=== PATIENT | female | born 1960 | race Caucasian/White ===

== ENCOUNTER 2018-07-26 05:06 | Day surgery (SDC) | payer MEDICAID ==
[~2018-07-26] VITALS: Ht 165.1 cm; Wt 76.8 kg
--- NOTE | ~2018-07-26 | OP ---
PATIENT NAME: KIMBERLEE MENDEZ MEDICAL RECORD: [id number] :64 LOCATION:[facility] ADMISSION DATE: SURGEON: VALERIE DIAZ MD DATE OF OPERATION: 07/26/2018 PROCEDURE: EGD with placement of a Hemoclip to control bleeding. EGD with biopsy. WET ROOM WORKER: Valerie Diaz MD SCOPE: Olympus video gastroscope. MEDICATIONS: Per TIVA anesthesia. The patient received 230 mg of propofol for this procedure, O2 at 4 liters. INDICATION FOR THE PROCEDURE: Epigastric abdominal pain; nausea; vomiting; gastroesophageal reflux disease; and previous history of serrated hyperplastic polyp in the C-loop; which was biopsied in the past. FINDINGS: Informed consent was given. The patient was made comfortable with the above medications. After reaching an adequate level of sedation by slow IV push, the patient was placed on her left side. The endoscope was then advanced under direct visualization through the posterior pharyngeal area and advanced to the distal esophagus. Ulcerations were seen at the 4 o'clock position and multiple biopsies were obtained. We also took some biopsies of the gastroesophageal surround. The scope was then advanced into the stomach and retroflexed. Wnjz-ia-tbujyzgm inflammation was seen in cardia and fundus as well as body of the stomach. We then advanced the scope to the antral area, where some slight hemorrhage was appreciated. Biopsies were obtained looking for the presence of Helicobacter pylori. The scope was introduced into the duodenum, into the C-loop, and the area of the previous polyp was identified. It was noted that this area was slightly hemorrhagic due to significant inflammation in the area. Biopsies were taken, which increased the amount of bleeding which had already been noted. We had to take biopsies of this area due to the fact that a serrated hyperplastic polyp was identified in 2016. After biopsies were obtained, we placed a Hemoclip with an excellent result to control the bleeding. It is my opinion that this might have been needed prior to biopsies being obtained. The scope was then withdrawn. IMPRESSION: 1. Esophageal ulcer at the gastroesophageal junction at the 4 o'clock position, biopsied. Some heme was present after biopsies were obtained, but the bleeding did decrease to an acceptable level. I feel it will clot effectively. 2. Gastritis throughout the entire stomach, but most pronounced at the antral area, which was noted to be slightly hemorrhagic. Biopsy taken at the antrum. 3. Hemorrhagic duodenal polyp at 55 cm within the C-loop, biopsied, and then Hemoclip placed with an excellent result. PLAN: 1. The patient will be asked to take sucralfate at 1 gram p.o. q.i.d., ranitidine 300 mg p.o. at bedtime, and omeprazole 20 mg p.o. q.a.m. EGD in 2 months if not sooner depending on the path of this polyp in the duodenum. 2. The patient will have a clinic appointment in clinic in 3 weeks as she is OPERATIVE REPORT [id number] KIMBERLEE MENDEZ MAY very symptomatic with her abdominal pain, nausea, and vomiting, which are improving somewhat but still present. 3. The patient should follow reflux precautions stringently, both dietary and positional. No chocolate, tomato, citrus, caffeine, fatty foods, or peppermint. She is strongly encouraged to continue to attempt to stop smoking as this is exacerbating all of the problems which we encountered today including gastroesophageal reflux disease. She will be instructed not to eat late at night and sit up for hours, at least 2 hours, after eating and to sleep with the head of the bed elevated. TRANSINT:[id number] Voice Confirmation ID: [id number] DOCUMENT ID: [id number] cc: Faby Juarez APRN [phone] Dr. Nina Nava [phone] VALERIE DIAZ MD CC: FABY JUAREZ APRN and DR. NINA NAVA [phone] DICTATION DATE: 07/26/18817 DIGITAL TECHNICIAN: 07/26/18 [id number] [facility] 07/26/[address] [id number]
[2018-07-26] MEDS ORDERED: RESTORIL15 MG PO (06:04)
[2018-07-26] MEDS ORDERED: ZANTAC300 MG PO (06:05)
[2018-07-26] MEDS ORDERED: ANORO ELLIPTA1 EACH INH (06:05)
[2018-07-26] MEDS ORDERED: HUMIRA SQ (06:06)
[2018-07-26] MEDS ORDERED: [UNRECOGNIZED DRUG - OTHER] SQ (06:06)
[2018-07-26 06:17] VITALS: BP 139/70; Ht 165.1 cm; Wt 76.8 kg
[2018-07-26 06:24] LABS: HEMATOCRIT 42.2 % (36.0-48.0); HEMOGLOBIN 14.2 g/dL (12-16); MCH 31.3 pg (26.0-34.0); MCHC 33.6 g/dL (31.0-37.0); MEAN PLATELET VOLUME 9.4 fL (7.4-10.4); RBC 4.54 10x6/uL (4.00-5.40); RDW 13.5 % (11.5-14.5)
--- NOTE | 2018-07-26 09:38 | NUR ---
0900-IV D/C-DISCHARGE INSTRUCTIONS REVIEWED.
--- NOTE | 2018-07-26 09:38 | NUR ---
0825-RECD TO ROOM, ALERT. IV PATENT 0830-FULL LIQUIDS SERVED 09-DR BAH ROUNDS AND PATIENT D/C WITH FAMILY.
== END 2018-07-26 09:25 | disposition home or self-care (01) ==
LOC: D.OPS 05:06
PROVIDERS: Anesthesiology; ATTEND Internal Medicine Gastroenterology
DX: K22.10 Ulcer of esophagus without bleeding (principal); K29.70 Gastritis, unspecified, without bleeding; K31.7 Polyp of stomach and duodenum; Z01.812 Encounter for preprocedural laboratory examination

== ENCOUNTER → 2018-08-15 12:34 | Outpatient (CLI) | payer MEDICAID ==
[2018-07-26 06:17] VITALS: BMI 28.1
[~2018-08-15 12:34] MED LIST: ANORO ELLIPTA1 EACH INH; HUMIRA SQ; RESTORIL15 MG PO; ZANTAC300 MG PO; [UNRECOGNIZED DRUG - OTHER] SQ
[2018-08-15 13:17] LABS: BASOPHILS 0.3 % (0-2); EOSINOPHILS 0.6 % (0-7); HEMATOCRIT 47.2 % (36.0-48.0); IMMATURE GRANULOCYTES 0.2 % (0-5); LYMPHOCYTES 30.2 % (15-50); MCH 31.6 pg (26.0-34.0); MCHC 33.9 g/dL (31.0-37.0); MCV 93.1 fL (80.0-100.0); MEAN PLATELET VOLUME 9.5 fL (7.4-10.4); MONOCYTES 6.5 % (2-11); NEUTROPHILS 62.2 % (40-80); PLATELET COUNT 100 10x3/uL (130-400); RBC 5.07 10x6/uL (4.00-5.40); RDW 13.3 % (11.5-14.5); WBC 6.5 10x3/uL (4.8-10.8)
[2018-08-15 13:32] LABS: PROTIME 12.7 SECONDS (11.6-15.0)
[2018-08-15 13:33] LABS: APTT 40.9 SECONDS (22.8-39.4); D-DIMER-QUANTITATIVE 0.43 ug/mLFEU (0.20-0.54)
[2018-08-15 13:38] LABS: ALBUMIN 4.2 g/dL (3.4-5.0); ANION GAP 12.3 mmol/L (8-16); BILIRUBIN - TOTAL 0.57 mg/dL (0.2-1.3); CALCIUM 9.4 mg/dL (8.5-10.1); CARBON DIOXIDE 31.4 mmol/L (21.0-32.0); CREATININE - SERUM 1.2 mg/dL (0.6-1.3); POTASSIUM - SERUM 3.7 mmol/L (3.5-5.1); PROTEIN - SERUM 7.6 g/dL (6.4-8.2)
[2018-08-17 11:14] LABS: FACTOR V ACTIVITY 113 % (70-150); FACTOR VII ACTIVITY 136 % (51-186)
[2018-08-17 15:12] LABS: FACTOR VIII - APTT 1:1 60 MIN 32.1 sec (22.9-30.2); FACTOR VIII - APTT 1:1 NP 30.8 sec (22.9-30.2); FACTOR VIII ACTIVITY 113 % (57-163)
== END | disposition home or self-care (01) ==
LOC: D.LAB 12:34
PROVIDERS: ATTEND Internal Medicine Hematology & Oncology
DX: K63.5 Polyp of colon (principal); R79.1 Abnormal coagulation profile; D69.49 Other primary thrombocytopenia

== ENCOUNTER → 2018-09-15 11:22 | Outpatient (CLI) | payer OTHER ==
[2018-07-26 06:17] VITALS: BMI 28.1
== END | disposition home or self-care (01) ==
LOC: D.RT 11:22
PROVIDERS: ATTEND Family Medicine
DX: Z02.71 Encounter for disability determination (principal)